=== PATIENT | male | born 1945 | race Caucasian/White ===

== ENCOUNTER 2021-04-20 09:21 | Emergency (ER) | payer MEDICARE ==
[2021-04-20] VITALS (9 sets, daily range): BP systolic 103–134; BP diastolic 45–77
[~2021-04-20] VITALS: Ht 182.9 cm; Wt 111.0 kg
[~2021-04-20 09:21] MED LIST: GLYB/METFO5 MG/500 M; JANUVIA100 MG PO; LORTAB5 PO; LOSARTAN POT100 MG PO; SIMVASTATIN40 MG PO
[2021-04-20 09:53] LABS: HEMATOCRIT 47.1 % (39.0-50.0); HEMOGLOBIN 15.6 g/dl (14.0-18.0); IMMATURE GRANULOCYTES 0.2 % (0.0-5.0); MEAN CELL VOLUME 99.6 fL CALC (80.0-100.0); MEAN CORPUSCULAR HGB CONC 33.1 g/dL CAL (32.0-36.0); NEUT# 4.3 thou/uL (1.82-7.42); RED BLOOD COUNT 4.73 mill/uL (4.70-6.10); RED CELL DISTRI WIDTH 12.8 % (11.5-15.5)
[2021-04-20 10:11] LABS: ALBUMIN 4.3 g/dL (3.2-5.0); ALKALINE PHOSPHATASE 64 u/l (38-126); ANION GAP 17 (6-22 (CALC)); BILIRUBIN, TOTAL 0.7 mg/dL (0.0-1.4); BUN 18 mg/dL (8-23); BUN/CREATININE RATIO 25 (12-20 (CALC)); CHLORIDE 102 mmol/l (95-108); CREATININE 0.7 mg/dL (0.7-1.3); GFR > 60 ML/MIN (>=60 (CALC)); GFR FOR AFR.AMER. > 60 ML/MIN (>=60 (CALC)); LIPASE 135 u/l (23-300); SGOT/AST 57 u/l (19-48); SODIUM 133 mmol/l (137-146)
[2021-04-20 10:12] LABS: CARBON DIOXIDE 19 mmol/l (22-30)
[2021-04-20 10:24] LABS: ACT PARTIAL THROMBO TIME 24.3 SECONDS (20.0-32.5); PROTHROMBIN TIME 10.4 SECONDS (9.0-12.5)
== END 2021-04-20 10:40 | disposition short-term general hospital (02) ==
LOC: ED 09:21
DX: I44.2 Atrioventricular block, complete (principal); I10 Essential (primary) hypertension; E11.9 Type 2 diabetes mellitus without complications; Z95.5 Presence of coronary angioplasty implant and graft; Z79.84 Long term (current) use of oral hypoglycemic drugs